=== PATIENT | female | born 1995 | race Caucasian/White ===

== ENCOUNTER 2025-05-21 23:35 | Emergency (ER) | payer OTHER ==
[~2025-05-21] VITALS: Ht 165.1 cm; Wt 59.0 kg
[2025-05-22] MEDS ORDERED: ACETAMINOPHEN 325 MG TABLET ONE (01:24)
[2025-05-22 01:27] LABS: PREGNANCY TEST URINE QUAL NEGATIVE (NEGATIVE)
[2025-05-22] MEDS: ACETAMINOPHEN 325 MG TABLET PO ONE (01:32)
[2025-05-22] MEDS ORDERED: METHOCARBAMOL (500MG) 500 MG TABLET ONE (01:52)
[2025-05-22] MEDS: METHOCARBAMOL (750MG) 750 MG TABLET PO ONE (02:01)
[2025-05-22] MEDS ORDERED: LIDOCAINE 5% (PATCH) 1 EA PATCH TP ONE (02:08)
[2025-05-22] MEDS: LIDOCAINE 5% (PATCH) 1 EA PATCH TP ONE (02:11)
[2025-05-22] MEDS ORDERED: LIDO30AD10 TP (03:02)
[2025-05-22] MEDS ORDERED: METH-649 PO (03:02)
[2025-05-22 03:25] VITALS: BP 112/70; TEMP 98; O2SAT 98
== END 2025-05-22 03:26 | disposition home or self-care (01) ==
LOC: ER 23:40
DX: M54.50 Low back pain, unspecified (principal); M54.2 Cervicalgia; R07.89 Other chest pain; V89.2XXA Person injured in unspecified motor-vehicle accident, traffic, initial encounter; Y93.89 Activity, other specified; Y92.410 Unspecified street and highway as the place of occurrence of the external cause; Y99.8 Other external cause status
CPT/HCPCS: 71100-TC; 72125-TC; 72131-TC; 84703-TC